=== PATIENT | male | born 1975 | race Caucasian/White ===

== ENCOUNTER 2018-01-25 00:24 | Inpatient (IN) | payer OTHER ==
[~2018-01-25] VITALS: Ht 185.4 cm; Wt 88.5 kg
[2018-01-25] MEDS ORDERED: CYMBALTA20 MG ORAL (00:39)
[2018-01-25] MEDS ORDERED: OXYCODONE HCL15 M1 ORAL (00:39)
[2018-01-25] MEDS ORDERED: LYRICA150 MG ORAL (00:39)
[2018-01-25 00:55] VITALS: BP 142/92
[2018-01-25] MEDS ORDERED: Isovue-300 100ml vial INJ PRN (01:00)
[2018-01-25] MEDS ORDERED: Piperacillin/Tazobactam 3.375 GM in NS 110 ML IVPB ONE (01:00)
[2018-01-25] MEDS ORDERED: Zosyn 3.375gm inj ONE (01:39)
[2018-01-25 01:44] LABS: BASOPHILS % (AUTO) 0.6 % (0.0-2.0); EOSINOPHILS % (AUTO) 1.3 % (0.0-3.0); HEMATOCRIT 35.5 % (42.0-52.0); HEMOGLOBIN 11.4 G/DL (14.2-18.0); LYMPHOCYTES % (AUTO) 15.2 % (20.0-45.0); MEAN CORPUSCULAR VOLUME 87 FL (80-99); NEUTROPHILS % (AUTO) 74.8 % (45.0-75.0); PLATELET COUNT 519 K/UL (150-450); RED BLOOD COUNT 4.09 M/UL (4.70-6.10); RED CELL DISTRIBUTION WIDTH 12.9 % (11.6-14.8)
[2018-01-25 01:56] LABS: ANION GAP 7 mmol/L (5-15); BLOOD UREA NITROGEN 9 mg/dL (7-18); CALCIUM 8.5 MG/DL (8.5-10.1); CARBON DIOXIDE 29 MMOL/L (21-32); CHLORIDE 103 MMOL/L (98-107); CREATININE 1.3 MG/DL (0.55-1.30); POTASSIUM 3.7 MMOL/L (3.5-5.1); SODIUM 139 MMOL/L (136-145)
[2018-01-25 02:12] LABS: ALANINE AMINOTRANSFERASE 109 U/L (12-78); ALBUMIN 3.3 G/DL (3.4-5.0); ALBUMIN/GLOBULIN RATIO 0.9 (1.0-2.7); ALKALINE PHOSPHATASE 70 U/L (46-116); ASPARTATE AMINO TRANSFERASE 154 U/L (15-37); BILIRUBIN,TOTAL 0.3 MG/DL (0.2-1.0); CREATINE KINASE 4331 U/L (26-308)
[2018-01-25] MEDS ORDERED: Morphine Sulfate 4mg/ml Inj IVP ONE (03:15)
[2018-01-25 03:50] VITALS: BP 127/86
--- NOTE | 2018-01-25 03:54 | Emergency Room Report ---
History of Present Illness General Chief Complaint: Skin Rash/Abscess Source: Patient Present Illness HPI 42-year-old male presents ED complaining of blisters and pain to his left leg 4 days. States it started suddenly. Denies any injury or skin tear prior to onset of symptoms. States there are multiple blisters on the leg. Surrounding redness with swelling to the leg. Pain is dull, 7 out of 10, nonradiating. Took temperature at home and states he was febrile. Afebrile in triage. Denies sick contacts or recent travel. No other aggravating relieving factors. Denies any other associated symptoms Allergies: Coded Allergies: No Known Allergies (Unverified , 01/25/18) Patient History Past Medical History: none Past Surgical History: other - gastric bypass Pertinent Family History: none Social History: Denies: smoking, alcohol use, drug use Immunizations: UTD Reviewed Nursing Documentation: PMH: Agreed; PSxH: Agreed Nursing Documentation-PMH Hx Hypertension: Yes - RT KNEE SURGERY Hx Gastrointestinal Problems: Yes - GASTRIC BYPASS Review of Systems All Other Systems: negative except mentioned in HPI Physical Exam Vital Signs Date Time Temp Pulse Resp B/P (MAP) Pulse Ox O2 Delivery O2 Flow Rate FiO2 01/25/18 00:31 99.6 112 18 142/92 96 Room Air 99.7 Sp02 EP Interpretation: reviewed, normal General Appearance: no apparent distress, alert, GCS 15, non-toxic Head: normocephalic Eyes: bilateral eye normal inspection, bilateral eye PERRL ENT: normal ENT inspection Neck: normal inspection Respiratory: chest non-tender, lungs clear, normal breath sounds, speaking full sentences Cardiovascular #1: regular rate, rhythm, no edema Gastrointestinal: normal bowel sounds, non tender, soft, non-distended, no guarding, no rebound Rectal: deferred Genitourinary: no CVA tenderness Musculoskeletal: inflammation Neurologic: alert, oriented x3, responsive, motor strength/tone normal, sensory intact, speech normal Psychiatric: normal inspection Skin: rash - multiple large vesicles on LLE. surrounding erythema/induration. swelling noted Lymphatic: normal inspection Medical Decision Making Diagnostic Impression: Primary Impression: Cellulitis of left lower extremity Additional Impression: Rhabdomyolysis Qualified Codes: M62.82 - Rhabdomyolysis ER Course Hospital Course 42-year-old male presents to ED with rash/swelling to LLE Differential diagnoses include: Cellulitis, abscess, rash. Clinical course Patient placed on stretcher. After initial history and physical I ordered labs , blood Cx, UA, IVFs, xrays and CT of tibfib labs reviewed - no leukocytosis, Hb/Hct stable, no electrolyte abnormalities, lactate ok, CK > 4000 xrays show no bony abnormality, no soft tissue gas CT confirms no evidence of nec fasciitis, no bony abnormality given IVFs, given broad spectrum abx. Dr Diaz will consult Case discussed with Dr Lane and he agreed to accept the patient to his service for further care and support Diagnosis - cellulitis of left lower extermity, rhabdomyolysis Patient admitted to floor in serious condition Labs Test 01/25/18 01:25 White Blood Count 11.0 K/UL (4.8-10.8) Red Blood Count 4.09 M/UL (4.70-6.10) Hemoglobin 11.4 G/DL (14.2-18.0) Hematocrit 35.5 % (42.0-52.0) Mean Corpuscular Volume 87 FL (80-99) Mean Corpuscular Hemoglobin 28.0 PG (27.0-31.0) Mean Corpuscular Hemoglobin Concent 32.2 G/DL (32.0-36.0) Red Cell Distribution Width 12.9 % (11.6-14.8) Platelet Count 519 K/UL (150-450) Mean Platelet Volume 5.9 FL (6.5-10.1) Neutrophils (%) (Auto) 74.8 % (45.0-75.0) Lymphocytes (%) (Auto) 15.2 % (20.0-45.0) Monocytes (%) (Auto) 8.0 % (1.0-10.0) Eosinophils (%) (Auto) 1.3 % (0.0-3.0) Basophils (%) (Auto) 0.6 % (0.0-2.0) Sodium Level 139 MMOL/L (136-145) Potassium Level 3.7 MMOL/L (3.5-5.1) Chloride Level 103 MMOL/L (98-107) Carbon Dioxide Level 29 MMOL/L (21-32) Anion Gap 7 mmol/L (5-15) Blood Urea Nitrogen 9 mg/dL (7-18) Creatinine 1.3 MG/DL (0.55-1.30) Estimat Glomerular Filtration Rate > 60 mL/min (>60) Glucose Level 108 MG/DL (74-106) Lactic Acid Level 1.20 mmol/L (0.4-2.0) Calcium Level 8.5 MG/DL (8.5-10.1) Total Bilirubin 0.3 MG/DL (0.2-1.0) Aspartate Amino Transf (AST/SGOT) 154 U/L (15-37) Alanine Aminotransferase (ALT/SGPT) 109 U/L (12-78) Alkaline Phosphatase 70 U/L (46-116) Total Creatine Kinase 4331 U/L (26-308) Total Protein 7.1 G/DL (6.4-8.2) Albumin 3.3 G/DL (3.4-5.0) Globulin 3.8 g/dL Albumin/Globulin Ratio 0.9 (1.0-2.7) Other X-Ray Diagnostic Results Other X-Ray Diagnostic Results : X-Ray ordered: L tibfib # of Views/Limited Vs Complete: 3 View Indication: Pain EP Interpretation: Yes Interpretation: no dislocation, no fractures Impression: No acute disease Electronically Signed by: Electronically signed by Jostin Luis MD CT/MRI/US Diagnostic Results CT/MRI/US Diagnostic Results : Imaging Test Ordered: CT L tibfib with contrast Impression No acute fracture or traumatic malalignment. Small joint effusion of the knee. Edema within the soft tissues which is nonspecific. Correlate clinically to exclude cellulitis. No soft tissue gas or abscess. Last Vital Signs Date Time Temp Pulse Resp B/P (MAP) Pulse Ox O2 Delivery O2 Flow Rate FiO2 01/25/18 03:09 98.8 01/25/18 00:55 112 18 142/92 96 Room Air Status: improved Disposition: ADMITTED INPATIENT Condition: Serious Referrals: NON PHYSICIAN (PCP) Jostin Luis MD Jan 25, 2018 03:54
[2018-01-25 04:57] VITALS: BP 125/92
[2018-01-25] MEDS ORDERED: oxyCODONE 15mg IR tab ORAL PRN ×2 (06:45→07:30)
[2018-01-25] MEDS ORDERED: D5 1/2NS 1,000 ML IV SCH (07:30)
[2018-01-25] MEDS ORDERED: Vancomycin 1500mg IVPB SCH (08:30)
[2018-01-25 09:00] VITALS: BP 110/74
[2018-01-25] MEDS ORDERED: DULoxetine 30mg cap ORAL SCH (09:00)
[2018-01-25] MEDS: Lyrica 75mg cap ORAL SCH ×2 (09:00→13:38)
[2018-01-25] MEDS ORDERED: Heparin 5000 units/ml inj SUBQ SCH (09:00)
[2018-01-25] MEDS ORDERED: Cefepime HCl 1 GM in D5W 55 ML IVPB SCH (09:00)
--- NOTE | 2018-01-25 09:38 | Consultation ---
History of Present Illness General Date patient seen: Jan 25, 2018 Chief Complaint: Skin Rash/Abscess Reason for Consultation: left leg infection / rash Present Illness HPI 42M states that 3 days ago he noted some abnormal wounds on his left leg and blistering of skin. denies trauma or new events. states he was sleeping and when he woke up noted discomfort then over subsequent hours wounds appeared and have not healed since. no n/v/f/c. pain in foot. swelling noted. drainage from blisters. In ED CT performed and no abscess noted. no air noted. soft tissue edema noted. Allergies: Coded Allergies: No Known Allergies (Unverified , 01/25/18) Medication History Scheduled Duloxetine (Cymbalta), 40 MG ORAL DAILY, (Reported) Pregabalin (Lyrica), 150 MG ORAL THREE TIMES A DAY, (Reported) Scheduled PRN Oxycodone Hcl* (Oxycodone Hcl*), 15 MG ORAL Q6H PRN for For Pain, (Reported) Patient History History Provided By: Patient, Medical Record Healthcare decision maker Resuscitation status Full Code Advanced Directive on File Past Medical/Surgical History Past Medical/Surgical History: (1) Rhabdomyolysis (2) Cellulitis of left lower extremity Review of Systems All Other Systems: negative except mentioned in HPI Physical Exam General Appearance: no apparent distress, alert Lines, tubes and drains: peripheral HEENT: mucous membranes moist, PERRL Neck: normal inspection Respiratory/Chest: normal breath sounds, no respiratory distress, no accessory muscle use Cardiovascular/Chest: normal peripheral pulses, normal rate, regular rhythm Abdomen: normal bowel sounds, non tender, soft, no organomegaly, no mass Extremities: normal inspection Skin Exam: normal pigmentation Neurologic: alert, responsive Last 24 Hour Vital Signs Date Time Temp Pulse Resp B/P (MAP) Pulse Ox O2 Delivery O2 Flow Rate FiO2 01/25/18 07:01 Room Air 01/25/18 04:57 97.7 86 20 125/92 (103) 97 97.7 01/25/18 03:50 99.2 90 18 127/86 96 Room Air 210.6 01/25/18 03:50 99.2 90 18 127/86 96 Room Air 99.2 01/25/18 03:09 98.8 01/25/18 00:55 98.8 112 18 142/92 96 Room Air 98.8 01/25/18 00:31 99.6 112 18 142/92 96 Room Air 99.7 Intake and Output 01/24/18 01/25/18 19:00 07:00 Intake Total 0 ml Balance 0 ml Intake Oral 0 ml # Voids 1 Laboratory Tests Test 01/25/18 01:25 White Blood Count 11.0 K/UL (4.8-10.8) H Red Blood Count 4.09 M/UL (4.70-6.10) L Hemoglobin 11.4 G/DL (14.2-18.0) L Hematocrit 35.5 % (42.0-52.0) L Mean Corpuscular Volume 87 FL (80-99) Mean Corpuscular Hemoglobin 28.0 PG (27.0-31.0) Mean Corpuscular Hemoglobin Concent 32.2 G/DL (32.0-36.0) Red Cell Distribution Width 12.9 % (11.6-14.8) Platelet Count 519 K/UL (150-450) H Mean Platelet Volume 5.9 FL (6.5-10.1) L Neutrophils (%) (Auto) 74.8 % (45.0-75.0) Lymphocytes (%) (Auto) 15.2 % (20.0-45.0) L Monocytes (%) (Auto) 8.0 % (1.0-10.0) Eosinophils (%) (Auto) 1.3 % (0.0-3.0) Basophils (%) (Auto) 0.6 % (0.0-2.0) Sodium Level 139 MMOL/L (136-145) Potassium Level 3.7 MMOL/L (3.5-5.1) Chloride Level 103 MMOL/L (98-107) Carbon Dioxide Level 29 MMOL/L (21-32) Anion Gap 7 mmol/L (5-15) Blood Urea Nitrogen 9 mg/dL (7-18) Creatinine 1.3 MG/DL (0.55-1.30) Estimat Glomerular Filtration Rate > 60 mL/min (>60) Glucose Level 108 MG/DL (74-106) H Lactic Acid Level 1.20 mmol/L (0.4-2.0) Calcium Level 8.5 MG/DL (8.5-10.1) Total Bilirubin 0.3 MG/DL (0.2-1.0) Aspartate Amino Transf (AST/SGOT) 154 U/L (15-37) H Alanine Aminotransferase (ALT/SGPT) 109 U/L (12-78) H Alkaline Phosphatase 70 U/L (46-116) Total Creatine Kinase 4331 U/L (26-308) H Total Protein 7.1 G/DL (6.4-8.2) Albumin 3.3 G/DL (3.4-5.0) L Globulin 3.8 g/dL Albumin/Globulin Ratio 0.9 (1.0-2.7) L Height (Feet): 6 Height (Inches): 1.00 Weight (Pounds): 195 Medications Current Medications Medications (Trade) Dose Ordered Sig/Slim Route PRN Reason Start Time Stop Time Status Last Admin Dose Admin Acetaminophen (Tylenol) 650 mg Q6H PRN ORAL Mild Pain/Temp > 100.5 01/25/18 07:30 02/24/18 07:29 Cefepime HCl 1 gm/ Dextrose 55 ml @ 110 mls/hr EVERY 12 HOURS IVPB 01/25/18 09:00 02/01/18 08:59 Dextrose/Sodium Chloride 1,000 ml @ 75 mls/hr [id number] IV 01/25/18 07:30 02/24/18 07:29 Duloxetine HCl (Cymbalta) 60 mg DAILY ORAL 01/25/18 09:00 02/24/18 08:59 Heparin Sodium (Porcine) (Heparin 5000 units/ml) 5,000 units EVERY 12 HOURS SUBQ 01/25/18 09:00 02/24/18 08:59 Iopamidol (Isovue-300 100ml) 100 ml NOW PRN INJ Radiology Procedure 01/25/18 01:00 Ondansetron HCl (Zofran) 4 mg Q6H PRN IVP Nausea & Vomiting 01/25/18 07:30 02/24/18 07:29 Oxycodone HCl (Roxicodone) 15 mg Q4H PRN ORAL Severe Pain (Pain Scale 7-10) 01/25/18 07:30 02/01/18 07:29 Pregabalin (Lyrica) 150 mg THREE TIMES A DAY ORAL 01/25/18 09:00 02/24/18 08:59 Vancomycin HCl (Vanco rx to dose) 1 ea DAILY PRN MISC Per rx protocol 01/25/18 07:30 02/24/18 07:29 Vancomycin HCl/ Dextrose 250 ml @ 125 mls/hr ONCE IVPB 01/25/18 08:30 01/25/18 10:00 Vancomycin HCl/ Dextrose 250 ml @ 166.667 mls/hr Q12H IVPB 01/25/18 20:00 01/30/18 19:59 Assessment/Plan Problem List: (1) Cellulitis of left lower extremity Assessment & Plan: unknown etiology of wounds multiple small blistering ulcerated wounds on mid left medial leg. 3 distinct superficial blisters in linear fashion noted as well. almost like scratch simon. patient in room and cannot keep awake during exam or interview. very lucid appearing that of drug use strong possibility of drug abuse from report, patients significant other in room and noted to inject herself and patient suspicion from looks of wound that they may be self inflicted / scratch simon. possible spider or animal bite as well. no acute surgical intervention planned. keep leg elevated skin protectant and non adherent dressings. Abx ID consult drug screen ICD Codes: L03.116 - Cellulitis of left lower limb SNOMED: [id number] Status: stable Dhaval Diaz Jan 25, 2018 09:38
--- NOTE | 2018-01-25 11:24 | Diagnostic Imaging Report ---
Indication: Pain, rash over proximal tibia for 3 days Technique: IV administration nonionic contrast Spiral acquisitions obtained through the left tibia and fibula Multiplanar reconstructions were generated. Total dose length product 486 mGycm. CTDIvol(s) 5 mGy. Radiation dose was minimized using automated exposure control Comparison: none Findings: There is very mild edema of the subcutaneous fat. This is circumferential but most predominant anteriorly over most the leg, more predominant medially at the level of the ankle. No focal fluid collection to suggest abscess. The vessels appear normally opacified. Minimal fluid is seen within the knee joint but no significant joint effusion. No evidence of acute fracture or dislocation Impression: Mild edema of the subcutaneous fat. This is nonspecific, could be inflammatory versus hemodynamic in nature No evidence of abscess No acute bony trauma This agrees with the preliminary interpretation provided overnight by [facility] teleradiology service. The CT scanner at [facility] is accredited by the [employer] and the scans are performed using protocols designed to limit radiation exposure to as low as reasonably achievable to attain images of sufficient resolution adequate for diagnostic evaluation.
[2018-01-25 12:00] VITALS: BP 125/84
--- NOTE | 2018-01-25 14:18 | Consultation ---
History of Present Illness General Date patient seen: Jan 25, 2018 Chief Complaint: Skin Rash/Abscess Reason for Consultation: left leg infection / rash Present Illness HPI 42 male with hx of mdd states that 3 days ago he noted some abnormal wounds on his left leg and blistering of skin. the pt has been using his gf medications and opioids. the pt was found altered after his gf allegedly gave him her meds. the pts room was confiscated and his nurse retrieved meds Allergies: Coded Allergies: No Known Allergies (Unverified , 01/25/18) Medication History Scheduled Duloxetine (Cymbalta), 40 MG ORAL DAILY, (Reported) Pregabalin (Lyrica), 150 MG ORAL THREE TIMES A DAY, (Reported) Scheduled PRN Oxycodone Hcl* (Oxycodone Hcl*), 15 MG ORAL Q6H PRN for For Pain, (Reported) Patient History Limited by: medical condition History Provided By: Patient, Medical Record, PMD Healthcare decision maker Resuscitation status Full Code Advanced Directive on File Past Medical/Surgical History Past Medical/Surgical History: (1) Rhabdomyolysis (2) Cellulitis of left lower extremity Review of Systems Psychiatric: Reports: prior hx, anxiety, depressed feelings Physical Exam General Appearance: no apparent distress, alert Neurologic: oriented x 3, responsive, depressed affect Last 24 Hour Vital Signs Date Time Temp Pulse Resp B/P (MAP) Pulse Ox O2 Delivery O2 Flow Rate FiO2 01/25/18 12:00 97.5 82 19 125/84 (98) 95 97.5 01/25/18 09:00 97.7 71 19 110/74 (86) 100 97.7 01/25/18 09:00 Room Air 01/25/18 07:01 Room Air 01/25/18 04:57 97.7 86 20 125/92 (103) 97 97.7 01/25/18 03:50 99.2 90 18 127/86 96 Room Air 210.6 01/25/18 03:50 99.2 90 18 127/86 96 Room Air 99.2 01/25/18 03:09 98.8 01/25/18 00:55 98.8 112 18 142/92 96 Room Air 98.8 01/25/18 00:31 99.6 112 18 142/92 96 Room Air 99.7 Intake and Output 01/24/18 01/25/18 19:00 07:00 Intake Total 0 ml Balance 0 ml Intake Oral 0 ml # Voids 1 Laboratory Tests Test 01/25/18 01:25 01/25/18 11:00 White Blood Count 11.0 K/UL (4.8-10.8) H Red Blood Count 4.09 M/UL (4.70-6.10) L Hemoglobin 11.4 G/DL (14.2-18.0) L Hematocrit 35.5 % (42.0-52.0) L Mean Corpuscular Volume 87 FL (80-99) Mean Corpuscular Hemoglobin 28.0 PG (27.0-31.0) Mean Corpuscular Hemoglobin Concent 32.2 G/DL (32.0-36.0) Red Cell Distribution Width 12.9 % (11.6-14.8) Platelet Count 519 K/UL (150-450) H Mean Platelet Volume 5.9 FL (6.5-10.1) L Neutrophils (%) (Auto) 74.8 % (45.0-75.0) Lymphocytes (%) (Auto) 15.2 % (20.0-45.0) L Monocytes (%) (Auto) 8.0 % (1.0-10.0) Eosinophils (%) (Auto) 1.3 % (0.0-3.0) Basophils (%) (Auto) 0.6 % (0.0-2.0) Sodium Level 139 MMOL/L (136-145) Potassium Level 3.7 MMOL/L (3.5-5.1) Chloride Level 103 MMOL/L (98-107) Carbon Dioxide Level 29 MMOL/L (21-32) Anion Gap 7 mmol/L (5-15) Blood Urea Nitrogen 9 mg/dL (7-18) Creatinine 1.3 MG/DL (0.55-1.30) Estimat Glomerular Filtration Rate > 60 mL/min (>60) Glucose Level 108 MG/DL (74-106) H Lactic Acid Level 1.20 mmol/L (0.4-2.0) Calcium Level 8.5 MG/DL (8.5-10.1) Total Bilirubin 0.3 MG/DL (0.2-1.0) Aspartate Amino Transf (AST/SGOT) 154 U/L (15-37) H Alanine Aminotransferase (ALT/SGPT) 109 U/L (12-78) H Alkaline Phosphatase 70 U/L (46-116) Total Creatine Kinase 4331 U/L (26-308) H Total Protein 7.1 G/DL (6.4-8.2) Albumin 3.3 G/DL (3.4-5.0) L Globulin 3.8 g/dL Albumin/Globulin Ratio 0.9 (1.0-2.7) L Urine Opiates Screen Positive (NEGATIVE) H Urine Barbiturates Screen Negative (NEGATIVE) Phencyclidine (PCP) Screen Negative (NEGATIVE) Urine Amphetamines Screen Negative (NEGATIVE) Urine Benzodiazepines Screen Positive (NEGATIVE) H Urine Cocaine Screen Negative (NEGATIVE) Urine Marijuana (THC) Screen Negative (NEGATIVE) Height (Feet): 6 Height (Inches): 1.00 Weight (Pounds): 195 Medications Current Medications Medications (Trade) Dose Ordered Sig/Slim Route PRN Reason Start Time Stop Time Status Last Admin Dose Admin Acetaminophen (Tylenol) 650 mg Q6H PRN ORAL Mild Pain/Temp > 100.5 01/25/18 07:30 02/24/18 07:29 Cefepime HCl 1 gm/ Dextrose 55 ml @ 110 mls/hr EVERY 12 HOURS IVPB 01/25/18 09:00 02/01/18 08:59 01/25/18 12:20 Dextrose/Sodium Chloride 1,000 ml @ 75 mls/hr [id number] IV 01/25/18 07:30 02/24/18 07:29 01/25/18 09:33 Duloxetine HCl (Cymbalta) 60 mg DAILY ORAL 01/25/18 09:00 02/24/18 08:59 01/25/18 09:35 Heparin Sodium (Porcine) (Heparin 5000 units/ml) 5,000 units EVERY 12 HOURS SUBQ 01/25/18 09:00 02/24/18 08:59 01/25/18 09:44 Iopamidol (Isovue-300 100ml) 100 ml NOW PRN INJ Radiology Procedure 01/25/18 01:00 Ondansetron HCl (Zofran) 4 mg Q6H PRN IVP Nausea & Vomiting 01/25/18 07:30 02/24/18 07:29 Oxycodone HCl (Roxicodone) 15 mg Q4H PRN ORAL Severe Pain (Pain Scale 7-10) 01/25/18 07:30 02/01/18 07:29 Pregabalin (Lyrica) 150 mg THREE TIMES A DAY ORAL 01/25/18 09:00 02/24/18 08:59 01/25/18 13:38 Vancomycin HCl (Vanco rx to dose) 1 ea DAILY PRN MISC Per rx protocol 01/25/18 07:30 02/24/18 07:29 Vancomycin HCl/ Dextrose 250 ml @ 166.667 mls/hr Q12H IVPB 01/25/18 20:00 01/30/18 19:59 Assessment/Plan Status: stable Assessment/Plan mdd substance use d/o Jon Ansari MD Jan 25, 2018 14:18
--- NOTE | 2018-01-25 14:25 | Consultation ---
History of Present Illness General Chief Complaint: Skin Rash/Abscess Reason for Consultation: left leg infection / rash Present Illness Allergies: Coded Allergies: No Known Allergies (Unverified , 01/25/18) Medication History Scheduled Duloxetine (Cymbalta), 40 MG ORAL DAILY, (Reported) Pregabalin (Lyrica), 150 MG ORAL THREE TIMES A DAY, (Reported) Scheduled PRN Oxycodone Hcl* (Oxycodone Hcl*), 15 MG ORAL Q6H PRN for For Pain, (Reported) Patient History Healthcare decision maker Resuscitation status Full Code Advanced Directive on File Physical Exam Last 24 Hour Vital Signs Date Time Temp Pulse Resp B/P (MAP) Pulse Ox O2 Delivery O2 Flow Rate FiO2 01/25/18 12:00 97.5 82 19 125/84 (98) 95 97.5 01/25/18 09:00 97.7 71 19 110/74 (86) 100 97.7 01/25/18 09:00 Room Air 01/25/18 07:01 Room Air 01/25/18 04:57 97.7 86 20 125/92 (103) 97 97.7 01/25/18 03:50 99.2 90 18 127/86 96 Room Air 210.6 01/25/18 03:50 99.2 90 18 127/86 96 Room Air 99.2 01/25/18 03:09 98.8 01/25/18 00:55 98.8 112 18 142/92 96 Room Air 98.8 01/25/18 00:31 99.6 112 18 142/92 96 Room Air 99.7 Intake and Output 01/24/18 01/25/18 19:00 07:00 Intake Total 0 ml Balance 0 ml Intake Oral 0 ml # Voids 1 Laboratory Tests Test 01/25/18 01:25 01/25/18 11:00 White Blood Count 11.0 K/UL (4.8-10.8) H Red Blood Count 4.09 M/UL (4.70-6.10) L Hemoglobin 11.4 G/DL (14.2-18.0) L Hematocrit 35.5 % (42.0-52.0) L Mean Corpuscular Volume 87 FL (80-99) Mean Corpuscular Hemoglobin 28.0 PG (27.0-31.0) Mean Corpuscular Hemoglobin Concent 32.2 G/DL (32.0-36.0) Red Cell Distribution Width 12.9 % (11.6-14.8) Platelet Count 519 K/UL (150-450) H Mean Platelet Volume 5.9 FL (6.5-10.1) L Neutrophils (%) (Auto) 74.8 % (45.0-75.0) Lymphocytes (%) (Auto) 15.2 % (20.0-45.0) L Monocytes (%) (Auto) 8.0 % (1.0-10.0) Eosinophils (%) (Auto) 1.3 % (0.0-3.0) Basophils (%) (Auto) 0.6 % (0.0-2.0) Sodium Level 139 MMOL/L (136-145) Potassium Level 3.7 MMOL/L (3.5-5.1) Chloride Level 103 MMOL/L (98-107) Carbon Dioxide Level 29 MMOL/L (21-32) Anion Gap 7 mmol/L (5-15) Blood Urea Nitrogen 9 mg/dL (7-18) Creatinine 1.3 MG/DL (0.55-1.30) Estimat Glomerular Filtration Rate > 60 mL/min (>60) Glucose Level 108 MG/DL (74-106) H Lactic Acid Level 1.20 mmol/L (0.4-2.0) Calcium Level 8.5 MG/DL (8.5-10.1) Total Bilirubin 0.3 MG/DL (0.2-1.0) Aspartate Amino Transf (AST/SGOT) 154 U/L (15-37) H Alanine Aminotransferase (ALT/SGPT) 109 U/L (12-78) H Alkaline Phosphatase 70 U/L (46-116) Total Creatine Kinase 4331 U/L (26-308) H Total Protein 7.1 G/DL (6.4-8.2) Albumin 3.3 G/DL (3.4-5.0) L Globulin 3.8 g/dL Albumin/Globulin Ratio 0.9 (1.0-2.7) L Urine Opiates Screen Positive (NEGATIVE) H Urine Barbiturates Screen Negative (NEGATIVE) Phencyclidine (PCP) Screen Negative (NEGATIVE) Urine Amphetamines Screen Negative (NEGATIVE) Urine Benzodiazepines Screen Positive (NEGATIVE) H Urine Cocaine Screen Negative (NEGATIVE) Urine Marijuana (THC) Screen Negative (NEGATIVE) Height (Feet): 6 Height (Inches): 1.00 Weight (Pounds): 195 Medications Current Medications Medications (Trade) Dose Ordered Sig/Slim Route PRN Reason Start Time Stop Time Status Last Admin Dose Admin Acetaminophen (Tylenol) 650 mg Q6H PRN ORAL Mild Pain/Temp > 100.5 01/25/18 07:30 02/24/18 07:29 Cefepime HCl 1 gm/ Dextrose 55 ml @ 110 mls/hr EVERY 12 HOURS IVPB 01/25/18 09:00 02/01/18 08:59 01/25/18 12:20 Dextrose/Sodium Chloride 1,000 ml @ 75 mls/hr [id number] IV 01/25/18 07:30 02/24/18 07:29 01/25/18 09:33 Duloxetine HCl (Cymbalta) 60 mg DAILY ORAL 01/25/18 09:00 02/24/18 08:59 01/25/18 09:35 Heparin Sodium (Porcine) (Heparin 5000 units/ml) 5,000 units EVERY 12 HOURS SUBQ 01/25/18 09:00 02/24/18 08:59 01/25/18 09:44 Iopamidol (Isovue-300 100ml) 100 ml NOW PRN INJ Radiology Procedure 01/25/18 01:00 Ondansetron HCl (Zofran) 4 mg Q6H PRN IVP Nausea & Vomiting 01/25/18 07:30 02/24/18 07:29 Oxycodone HCl (Roxicodone) 15 mg Q4H PRN ORAL Severe Pain (Pain Scale 7-10) 01/25/18 07:30 02/01/18 07:29 Pregabalin (Lyrica) 150 mg THREE TIMES A DAY ORAL 01/25/18 09:00 02/24/18 08:59 01/25/18 13:38 Vancomycin HCl (Vanco rx to dose) 1 ea DAILY PRN MISC Per rx protocol 01/25/18 07:30 02/24/18 07:29 Vancomycin HCl/ Dextrose 250 ml @ 166.667 mls/hr Q12H IVPB 01/25/18 20:00 01/30/18 19:59 Rebecca Fernandes MD Jan 25, 2018 14:25
--- NOTE | 2018-01-25 14:42 | Diagnostic Imaging Report ---
Indication: Reason For Exam: PAIN Technique: 2 views of the left tibia and fibula Comparison: none Findings: No acute fractures. No dislocations. No radiopaque foreign body Impression: Negative
[2018-01-25] MEDS ORDERED: Tubing IV Secondary IV ONE (17:29)
[2018-01-25] MEDS ORDERED: D5 1/2NS 1000ml IV ONE (17:29)
--- NOTE | 2018-01-25 17:32 | History & Physical ---
History and Physical History & Physicial Dictated for Int Med[facility]ingo no. [id number]. Joshua Canchola MD Jan 25, 2018 17:32
[2018-01-25] MEDS ORDERED: Vancomycin 1250mg/D5W 250ml IVPB SCH (20:00)
--- NOTE | 2018-01-25 23:15 | History and Physical Report ---
DATE OF ADMISSION: 01/25/2018 CHIEF COMPLAINT: The patient is a 42-year-old, white male, presents with chief complaint of left lower leg pain and swelling. HISTORY OF PRESENT ILLNESS: The patient has a history of cellulitis. The patient states history of present illness began 4 days ago. The patient began to have pain and swelling of the left lower extremity. The leg now has blisters present. The patient also complains of erythema of the left leg. The patient presented to [facility]. The patient is admitted with left lower extremity pain and swelling to rule out cellulitis. PAST MEDICAL HISTORY: Significant for 1. Rhabdomyolysis. 2. History of left lower extremity. PAST SURGICAL HISTORY: Significant for 1. Gastric bypass. 2. Right knee surgery. CURRENT MEDICATIONS: 1. Oxycodone 15 mg p.o. q.6 h. p.r.n. 2. Lyrica 150 mg p.o. 3 times a day. 3. Cymbalta 20 mg p.o. daily. ALLERGIES: No known drug allergies. SOCIAL HISTORY: The patient is . The patient denies tobacco or alcohol use. REVIEW OF SYSTEMS: CONSTITUTIONAL: The patient denies weight lost or weight gain. The patient denies fevers or chills. HEENT: The patient denies ear or throat pain. The patient denies headache. CARDIOVASCULAR: The patient denies palpitations or chest pain. CHEST: The patient denies wheeze or shortness of breath. ABDOMEN: The patient denies nausea, vomiting, diarrhea, or constipation. GENITOURINARY: The patient denies dysuria or increased frequency of urination. NEUROMUSCULAR: The patient complains of left lower extremity pain and swelling as above. The patient denies seizures or generalized weakness. PHYSICAL EXAMINATION: GENERAL: The patient is well developed and well nourished, white male, in no apparent distress. VITAL SIGNS: Temperature 97.7-99.2 degrees, respirations 18 to 20, pulse 86-90, blood pressure 125 to 127 over 86 to 103. HEENT: Eyes, pupils equal and responsive to light and accommodation. Extraocular movements are intact. NECK: Supple without lymphadenopathy. CHEST: Lungs are clear to auscultation bilaterally without wheezes or rales. CARDIOVASCULAR: Regular rhythm and rate. S1 and S2 are normal without murmurs, rubs, or gallops. ABDOMEN: Soft, nontender, and nondistended. Positive bowel sounds. No evidence of hepatosplenomegaly. Currently, no rebound or guarding noted. EXTREMITIES: Negative for clubbing, cyanosis, edema. EXTREMITIES: The left leg has erythema and swelling from the ankle to the knee. There is erythema present. There are blisters on the skin. Otherwise, without clubbing, cyanosis, or edema. RECTAL: Refused. GENITAL: Refused. NEUROLOGIC: Cranial nerves II through XII are grossly intact without focal deficits. Motor strength is 5/5 bilaterally. Deep tendon reflexes 2+ plantar. LABORATORY AND DIAGNOSTIC DATA: WBC 11.3, hemoglobin 11.4, hematocrit 35.5 and platelets 519,000. Sodium 139, potassium 3.7, chloride 105, CO2 29, BUN 9, creatinine 1.3 and glucose 108. AST elevated at 154 and ALT elevated at 109. Total CK elevated at 4331. A CT scan of the legs, edema with subcutaneous fat, otherwise no acute. ASSESSMENT: This is a 42-year-old white male 1. Left leg cellulitis. 2. Left leg pain. 3. Elevated liver function tests. 4. Rhabdomyolysis. TREATMENT: 1. Left leg cellulitis. An Infectious Disease consultation has been obtained with Dr. Walker. The patient has been started empirically on intravenous vancomycin and cefepime. We will follow recommendations of Infectious Disease. A blood culture is pending. 2. Elevated liver function tests. A Gastroenterology consultation has been obtained with Dr. Rosalino Ruggiero. This may be secondary to rhabdomyolysis. 3. Rhabdomyolysis. The patient is currently receiving intravenous fluids. Joshua Canchola M.D. DR: TANNA JOB#: [id number] CC:
--- NOTE | 2018-01-26 09:54 | Discharge Summary ---
Discharge Summary Discharge Summary _ DATE OF ADMISSION: 01/25/2018 DATE OF DISCHARGE: 01/25/2018 CONSULTANTS: Dr. Jon Fernandes BRIEF HOSPITAL COURSE: Patient is a 42-year-old white male, who presented to ED with chief complaint of left lower leg pain and swelling. He has history of cellulitis and symptoms started 4 days prior to admission. He began to experience pain and swelling on the left lower extremity. Symptoms progressed that he eventually developed blisters. He denied any injury or skin tear prior to onset of symptoms. He denied any sick contacts or recent travel. Pain was dull and 7 out of 10, nonradiating. There was no aggravating or relieving factors. He has medical history significant for rhabdomyolysis, prior right knee surgery and gastric bypass. On evaluation at ED, WBC was 11, hemoglobin and hematocrit was stable. Lactic acid was 1.2. Total CK was 4331. X-ray of the left tibia-fibula was negative for fractures or dislocation. CT of the left leg showed mild edema of the subcutaneous fat. There was no evidence of abscess, no acute bony trauma. He was then admitted for evaluation of cellulitis and rhabdomyolysis. He was started on IV hydration. Surgical consultation was done. Wound evaluation was done. He had multiple small blistering ulcerated wounds on the mid left medial leg, there were 3 distinct superficial blisters in linear fashion. He was given wound/skin care. Advised to keep leg elevated. No acute surgical intervention needed. He underwent psychiatric evaluation. Patient was found altered after apparently taking medications from home. Medications were confiscated and were turned in to pharmacy. Patient admitted to using girlfriends'medication. Full treatment was not carried out as he left AGAINST MEDICAL ADVICE. FINAL DIAGNOSES: Left leg pain and cellulitis Elevated liver function test Rhabdomyolysis Major depressive disorder Substance use disorder DISPOSITION: Patient left AMA. I have been assigned to dictate discharge summary on this account, and I was not involved in the patient's management. Cheryl Azar NP Jan 26, 2018 09:54
== END 2018-01-25 17:30 | disposition left against medical advice (07) | DRG 383 ==
LOC: EMR 00:48 → 4W 01:42 → EDBEDREQ 01:45 → 4W 04:00
DX: L03.116 Cellulitis of left lower limb (principal); M62.82 Rhabdomyolysis; R79.89 Other specified abnormal findings of blood chemistry; F32.9 Major depressive disorder, single episode, unspecified; F19.10 Other psychoactive substance abuse, uncomplicated; Z98.84 Bariatric surgery status
CPT/HCPCS: 36415; 80053; 80301; 80307; 82550; 83605; 85025; 87040; J2405